=== PATIENT | male | born 1995 | race Caucasian/White ===

== ENCOUNTER 2017-08-26 18:26 | Emergency (ER) | payer BC ==
--- NOTE | 2017-08-26 19:26 | Emergency Department Record ---
History of Present Illness - General Chief Complaint: Wound, puncture Stated Complaint: LT HAND INJURY Time Seen by Provider: 08/26/17 19:09 Source: Patient Mode of Arrival: Ambulatory Limitations: No limitations - History of Present Illness Initial Commments: pt drilled through hand. it went in at the base of the 3rd finger and out lateral aspect of middle finger. pt has numbness at tip of finger and along lateral aspect. Onset/Timin -: Minutes(s) Extremity Location: Left: Hand Place: Home Context: Accidental Associated Symptoms: Pain Treatments Prior to Arrival: Bandage - Anais Coma Scale Eye Response: (4) Open spontaneously Motor Response: (6) Obeys commands Verbal Response: (5) Oriented [place] Total: 15 - Related Data Patient Tetanus UTD (within 5 yrs): No (unsure, is checking) Previous Rx's Medication Instructions Recorded Cephalexin [Keflex] 500 mg PO TID #20 cap 08/26/17 Allergies Allergy/AdvReac Type Severity Reaction Status Date / Time No Known Allergies Allergy Mild DIARRHEA Unverified 08/26/17 18:41 amoxicillin AdvReac DIARRHEA Verified 08/26/17 18:41 Penicillins AdvReac DIARRHEA Verified 08/26/17 18:41 Travel Screening - Travel/Exposure Within Last 30 Days Have you traveled within the last 30 days?: No - Travel/Exposure Within Last Year Have you traveled outside the [place] in the last year?: No - Additonal Travel Details Have you been exposed to anyone with a communicable illness?: No Review of Systems Reviewed: No additional complaints except as noted below Constitutional: Reports: As per HPI. Denies: Chills, Fever, Malaise, Night sweats, Weakness, Weight change Eyes: Reports: As per HPI. Denies: Eye discharge, Eye pain, Photophobia, Vision change ENT: Reports: As per HPI. Denies: Congestion, Dental pain, Ear pain, Epistaxis , Hearing loss, Throat pain Respiratory: Reports: As per HPI. Denies: Cough, Dyspnea, Hemoptysis, Stridor, Wheezes Cardiovascular: Reports: As per HPI. Denies: Arrhythmia, Chest pain, Dyspnea on exertion, Edema, Murmurs, Orthopnea, Palpitations, Paroxysmal nocturnal dyspnea, Rheumatic Fever, Syncope Endocrine: Reports: As per HPI. Denies: Fatigue, Heat or cold intolerance, Polydipsia, Polyuria Gastrointestinal: Reports: As per HPI. Denies: Abdominal pain, Constipation, Diarrhea, Hematemesis, Hematochezia, Melena, Nausea, Vomiting Genitourinary: Reports: As per HPI. Denies: Dysuria, Frequency, Hematuria, Incontinence, Retention, Testicular pain, Testicular mass, Urgency Musculoskeletal: Reports: As per HPI. Denies: Arthralgia, Back pain, Gout, Joint swelling, Myalgia, Neck pain Skin: Reports: As per HPI. Denies: Bruising, Change in color, Change in hair/ nails, Lesions, Pruritus, Rash Neurological: Reports: As per HPI. Denies: Abnormal gait, Confusion, Headache, Numbness, Paresthesias, Seizure, Tingling, Tremors, Vertigo, Weakness Psychiatric: Reports: As per HPI. Denies: Anxiety, Auditory hallucinations, Depression, Homicidal thoughts, Suicidal thoughts, Visual hallucinations Hematological/Lymphatic: Reports: As per HPI. Denies: Anemia, Blood Clots, Easy bleeding, Easy bruising, Swollen glands Past Medical History - SOCIAL HISTORY Smoking Status: Light tobacco smoker (<10/day) Alcohol Use: Rare Drug Use: Occasional Drug Use Detail:: Marijuana - RESPIRATORY Hx Respiratory Disorders: No - CARDIOVASCULAR Hx Cardio Disorders: No - NEURO Hx Neuro Disorders: No - GI Hx GI Disorders: Yes Hx Reflux: Yes - Hx Genitourinary Disorders: No - ENDOCRINE Hx Endocrine Disorders: No - MUSCULOSKELETAL Hx Musculoskeletal Disorders: No - PSYCH Hx Psych Problems: No - HEMATOLOGY/ONCOLOGY Hx Hematology/Oncology Disorders: No Family Medical History Any Significant Family History?: No Physical Exam - General General Appearance: Alert, Oriented x3, Cooperative, Mild distress - Head Head exam: Normal inspection - Eye Eye exam: Normal appearance, PERRL, EOMI Pupils: Normal accommodation - ENT ENT exam: Normal exam, Mucous membranes moist, Normal external ear exam, Normal orophraynx Ear exam: Normal external inspection. negative: External canal tenderness Nasal Exam: Normal inspection. negative: Discharge, Sinus tenderness Mouth exam: Normal external inspection, Tongue normal Teeth exam: Normal inspection. negative: Dental caries Throat exam: Normal inspection. negative: Tonsillar erythema, Tonsillar exudate - Neck Neck exam: Normal inspection, Full ROM. negative: Tenderness - Respiratory Respiratory exam: Normal lung sounds bilaterally. negative: Respiratory distress - Cardiovascular Cardiovascular Exam: Regular rate, Normal rhythm, Normal heart sounds - GI/Abdominal GI/Abdominal exam: Soft, Normal bowel sounds. negative: Tenderness - Rectal Rectal exam: Deferred - exam: Deferred - Extremities Extremities exam: Normal inspection, Full ROM, Normal capillary refill. negative: Tenderness Image of Hand: 2 - puncture 3 cm 3 - exit wound - Back Back exam: Reports: Normal inspection, Full ROM. Denies: Muscle spasm, Rash noted, Tenderness - Neurological Neurological exam: Alert, CN II-XII intact, Normal gait, Oriented X3 - Psychiatric Psychiatric exam: Normal affect, Normal mood - Skin Skin exam: Dry, Intact, Normal color, Warm Course Vital Signs 08/26/17 18:42 Temperature 98.6 F Pulse Rate 97 H Respiratory 18 Rate Blood Pressure 140/72 Pulse Ox 98 - Reevaluation(s) Reevaluation #1: 08/26/17 20:42 d/w dr reyes via text Disposition Disposition: Discharge Clinical Impression: Laceration of hand with complication Qualifiers: Encounter type: initial encounter Laterality: left Qualified Code(s): S61.412A - Laceration without foreign body of left hand, initial encounter Disposition: Home, Self-Care Condition: (1) Good Instructions: Puncture Wound (ED), Soft Tissue Foreign Body (ED) Additional Instructions: follow up with dr reyes. call office in the morning. return sooner if worse Prescriptions: Cephalexin [Keflex] 500 mg PO TID #20 cap Referrals: AALIYAH REYES M.D. [MEDICAL DOCTOR] - Forms: Patient Portal Access, Return to Work/School Quality - Quality Measures Quality Measures: N/A - Blood Pressure Screening Does Patient Have Any of the Following: No Blood Pressure Classification: Hypertensive Reading Systolic Measurement: 140 Diastolic Measurement: 72 Screening for High Blood Pressure: < Pre-Hypertensive BP, F/U Documented > [ [id number]] Pre-Hypertensive Follow-up Interventions: Follow-up with rescreen every year. Laceration - Other - Time Out Informed consent:: Informed consent obtained Confirmed first & last name, , procedure, correct site?: Yes Start Date:: 08/26/17 Start Time:: 20:10 - Location Location of laceration:: Left Laceration located on:: Hand - Clean and Prep Laceration cleaning method:: Copious Irrigation, Extensive Cleaning, Removal of Particular Matter Laceration cleaning agent:: Normal Saline - Local Anesthetic Lidocaine used:: 1% Lidocaine dose:: 2 mL - Procedural Detail Tissue detail:: Torn Foreign body in the wound?: Yes Undermining was preformed?: No Stent applied?: No Chandni applied?: No Retention suture(s) applied?: No Skin suture pattern:: Interrupted Suture material/size:: 5-0: Nylon Number of skin sutures:: 2
[2017-08-26] MEDS ORDERED: CEPHALEXIN 500 MG CAPSULE PO STA (20:35)
--- NOTE | 2017-08-28 13:55 | RADIOLOGY REPORT ---
DATE: 08/26/2017 at 1915. EXAM: LEFT HAND, COMPLETE. HISTORY: The patient drilled through third digit with drill bit. TECHNIQUE: Three views of the left hand. COMPARISON: None. ENCOUNTER: Initial. FINDINGS: There is normal bone mineralization. No convincing acute fracture, dislocation, or destructive bone lesion is seen. The articular relations are maintained. There are two tiny hyperdensities within the anterolateral soft tissue at the level of the third proximal phalanx base associated with subcutaneous emphysema. No donor site is noted in the adjacent bone. These are likely foreign bodies. No other soft tissue abnormality is seen. IMPRESSION: 1. NO ACUTE FRACTURE NOR DISLOCATION IDENTIFIED. 2. SOFT TISSUE SWELLING AND SOFT TISSUE EMPHYSEMA IN THE ANTEROLATERAL SOFT TISSUES OF THE BASE OF THE THIRD DIGIT. WITHIN THIS REGION ARE TWO TINY HYPERDENSITIES SUSPICIOUS FOR FOREIGN BODIES WITH THE LARGEST MEASURING 0.8 MM. JOB NUMBER: [id number] MTDD
== END 2017-08-26 20:53 | disposition home or self-care (01) ==
LOC: ER 18:26
DX: S61.412A Laceration without foreign body of left hand, initial encounter (principal); W31.1XXA Contact with metalworking machines, initial encounter; Y92.009 Unspecified place in unspecified non-institutional (private) residence as the place of occurrence of the external cause
CPT/HCPCS: 99283; 99284